=== PATIENT | female | born 1980 | race Caucasian/White ===

== ENCOUNTER 2017-08-01 19:49 | Emergency (ER) | payer SELFPAY | END 2017-08-01 20:36 | disposition home or self-care (01) | LOC: NAV ERS 19:49 | DX: H60.92 Unspecified otitis externa, left ear (principal); F17.210 Nicotine dependence, cigarettes, uncomplicated | CPT/HCPCS: 99283 ==

== ENCOUNTER 2018-04-23 00:20 | Emergency (ER) | payer SELFPAY ==
[2018-04-23] MEDS ORDERED: Amoxicillin/Potassium Clav 875 MG TAB ONE (00:48)
== END 2018-04-23 00:55 | disposition home or self-care (01) ==
LOC: NAV ERS 00:20
DX: H60.91 Unspecified otitis externa, right ear (principal); F17.210 Nicotine dependence, cigarettes, uncomplicated
CPT/HCPCS: 99282